=== PATIENT | female | born 1970 | race American Indian/Alaskan Native ===

== ENCOUNTER 2017-01-03 05:22 | Emergency (ER) | payer SELFPAY ==
[2017-01-03 06:16] LABS: Basophils % (Auto) 0.9 % (0.0-1.8); Eosinophils % (Auto) 2.8 % (0.0-4.3); Hematocrit 39.8 % (30.3-42.9); Hemoglobin 12.6 gm/dl (10.1-14.3); Mean Corpuscular HGB Conc 32 % (30-34); Mean Corpuscular Volume 79 fl (79-97); Platelet Count 325 K/mm3 (140-440); Red Blood Count 5.07 M/mm3 (3.65-5.03); White Blood Count 10.6 K/mm3 (4.5-11.0)
[2017-01-03 06:21] LABS: Anion Gap 21 mmol/L; Blood Urea Nitrogen 9 mg/dL (7-17); Calcium 9.5 mg/dL (8.4-10.2); Carbon Dioxide 23 mmol/L (22-30); Glucose 105 mg/dL (65-100); Sodium 137 mmol/L (137-145)
[2017-01-03 06:25] LABS: Mean Corpuscular Hemoglobin 25 pg (28-32)
[2017-01-03 06:31] LABS: Partial Thromboplastin Time 31.2 Sec. (24.2-36.6)
[2017-01-03 06:45] LABS: INR 1.02 (0.87-1.13)
--- NOTE | 2017-01-03 07:27 | XRay Report ---
ROUTINE CHEST, TWO VIEWS: HISTORY: Shortness of breath. The trachea, heart, mediastinal contour, lung emery and bony thorax are unremarkable. IMPRESSION: Unremarkable chest x-ray.
[2017-01-03] MEDS ORDERED: NORCO 5/325 PO ONE (07:37)
--- NOTE | 2017-01-03 07:42 | Emergency Department Report ---
ED General Adult HPI - General Chief complaint: Upper Respiratory Infection Stated complaint: CP Time Seen by Provider: 01/03/17 07:22 Source: patient Mode of arrival: Ambulatory Limitations: No Limitations - History of Present Illness Initial comments: 46-year-old female presents to the emergency department complaining of chest pain. Patient states for the past one week she has been having cough productive of yellow to green sputum. She describes some achy pain in her chest related to the cough. There has been no fever. This morning, the patient states she was awakened from sleep at approximately 4:15 AM with sharp pain in the left side of her chest. This pain did not radiate. She reports associated diaphoresis, nausea, and difficulty breathing. She reports this pain has since resolved. There are no other complaints. -: Sudden, This morning Time: 04:15 Location: chest Radiation: non-radiation Severity scale (0 -10): 4 Quality: sharp Consistency: constant, now resolved Improves with: none Worsens with: none Associated Symptoms: chest pain, cough, diaphoresis, nausea/vomiting (nausea only), shortness of breath Treatments Prior to Arrival: none - Related Data Previous Rx's Medication Instructions Recorded Last Taken Type Benzonatate [Tessalon Perles] 100 mg PO Q8HR PRN #30 capsule 01/03/17 Unknown Rx HYDROcodone/APAP 5-325 [[place] 1 each PO Q6HR PRN #20 tablet 01/03/17 Unknown Rx 5/325] Allergies Allergy/AdvReac Type Severity Reaction Status Date / Time No Known Allergies Allergy Verified 01/03/17 05:26 ED Review of Systems ROS: Stated complaint: CP Other details as noted in HPI Comment: All other systems reviewed and negative Constitutional: diaphoresis Respiratory: cough, shortness of breath Cardiovascular: chest pain Gastrointestinal: nausea ED Past Medical Hx - Past Medical History Previous Medical History?: No - Surgical History Past Surgical History?: No - Family History Family history: no significant - Social History Smoking Status: Never Smoker Substance Use Type: None - Medications Home Medications: Home Medications Medication Instructions Recorded Confirmed Last Taken Type Benzonatate [Tessalon Perles] 100 mg PO Q8HR PRN #30 capsule 01/03/17 Unknown Rx HYDROcodone/APAP 5-325 [[place] 1 each PO Q6HR PRN #20 tablet 01/03/17 Unknown Rx 5/325] ED Physical Exam - General Limitations: No Limitations General appearance: alert, in no apparent distress - Head Head exam: Present: atraumatic, normocephalic - Eye Eye exam: Present: normal appearance, PERRL, EOMI - ENT ENT exam: Present: normal exam, normal orophraynx, mucous membranes moist - Neck Neck exam: Present: normal inspection, full ROM. Absent: tenderness - Respiratory Respiratory exam: Present: normal lung sounds bilaterally. Absent: respiratory distress - Cardiovascular Cardiovascular Exam: Present: regular rate, normal rhythm, normal heart sounds - GI/Abdominal GI/Abdominal exam: Present: soft, normal bowel sounds. Absent: distended, tenderness - Extremities Exam Extremities exam: Present: normal inspection, full ROM. Absent: tenderness - Back Exam Back exam: Present: normal inspection, full ROM, tenderness, muscle spasm, paraspinal tenderness (right lumbar) - Neurological Exam Neurological exam: Present: alert, oriented X3. Absent: motor sensory deficit - Skin Skin exam: Present: warm, dry, intact ED Course Vital Signs 01/03/17 01/03/17 01/03/17 05:22 06:28 06:30 Temperature 97.1 F L Pulse Rate 90 78 71 Respiratory 20 16 12 Rate Blood Pressure 106/78 Blood Pressure 142/88 [Right] O2 Sat by Pulse 99 96 97 Oximetry 01/03/17 01/03/17 01/03/17 06:40 06:50 07:00 Temperature Pulse Rate 71 77 63 Respiratory 15 15 16 Rate Blood Pressure 106/78 90/56 119/77 Blood Pressure [Right] O2 Sat by Pulse 95 97 95 Oximetry 01/03/17 01/03/17 01/03/17 07:10 07:20 07:30 Temperature Pulse Rate 69 73 89 Respiratory 15 18 13 Rate Blood Pressure 119/77 125/86 119/90 Blood Pressure [Right] O2 Sat by Pulse 95 94 99 Oximetry 01/03/17 01/03/17 01/03/17 07:40 07:50 08:00 Temperature 98.5 F Pulse Rate 71 70 72 Respiratory 14 13 14 Rate Blood Pressure 119/90 113/68 107/77 Blood Pressure 107/77 [Right] O2 Sat by Pulse 93 92 98 Oximetry 01/03/17 01/03/17 08:10 08:20 Temperature Pulse Rate 79 67 Respiratory 17 11 L Rate Blood Pressure 107/77 107/77 Blood Pressure [Right] O2 Sat by Pulse 99 96 Oximetry ED Medical Decision Making - Lab Data Result diagrams: 01/03/17 05:44 01/03/17 05:44 - EKG Data -: EKG Interpreted by Me EKG shows normal: sinus rhythm, axis, intervals, QRS complexes, ST-T waves Rate: normal - EKG Data When compared to previous EKG there are: previous EKG unavailable Interpretation: normal EKG - Radiology Data Radiology results: image reviewed interpreted by me: Chest x-ray shows no acute cardiopulmonary abnormality. - Medical Decision Making Lab and imaging results reviewed and discussed with the patient. Patient reports feeling better with medication. Patient will be discharged home at this time to follow up with her primary care physician. - Differential Diagnosis pneumonia, bronchitis, atypical chest pain Critical care attestation.: If time is entered above; I have spent that time in minutes in the direct care of this critically ill patient, excluding procedure time. ED Disposition Clinical Impression: Non-cardiac chest pain Acute bronchitis Qualifiers: Bronchitis organism: unspecified organism Qualified Code(s): J20.9 - Acute bronchitis, unspecified Disposition: DISCHARGED TO HOME OR SELFCARE Is pt being admited?: No Condition: Stable Instructions: Acute Bronchitis (ED), Chest Pain (ED) Prescriptions: Benzonatate [Tessalon Perles] 100 mg PO Q8HR PRN #30 capsule PRN Reason: Cough HYDROcodone/APAP 5-325 [[place] 5/325] 1 each PO Q6HR PRN #20 tablet PRN Reason: Pain Referrals: PRIMARY CARE, [Primary Care Provider] - 3-5 Days Time of Disposition: 09:16
[2017-01-03 08:29] VITALS: BP 107/77
== END 2017-01-03 09:29 | disposition home or self-care (01) ==
LOC: ED 05:22
DX: J20.9 Acute bronchitis, unspecified (principal)
CPT/HCPCS: 36415; 71020; 80048; 84484; 85025; 85610; 85730; 87040; 93005; 93010